=== PATIENT | male | born 1970 | race Caucasian/White ===

== ENCOUNTER 2022-01-11 09:58 | Emergency (ER) | payer BC ==
[~2022-01-11] VITALS: Ht 170.2 cm; Wt 84.4 kg
[2022-01-11 10:10] VITALS: BP_SYST 112
--- NOTE | 2022-01-11 10:10 | NUR ---
Patient triaged and placed in waiting room. VSS and patient appears in no acute distress at this time. Accompanied by , awaiting available bed, and MD notified of need for MSE.
--- NOTE | 2022-01-11 10:36 | NUR ---
Patient to ER bed 5 to gown for evaluation. Side rails up. Report given to BISHOP UPTON.
--- NOTE | 2022-01-11 11:14 | NUR ---
ER DR. STONE EXAMINING PT
[2022-01-11] MEDS ORDERED: LIDOCAINE PATCH 5% 1 EA TP ONE (11:15)
[2022-01-11] MEDS ORDERED: KETOROLAC TROMETHAMINE 30 MG VIAL IM ONE (11:15)
[2022-01-11] MEDS ORDERED: BACLOFEN 10 MG TABLET PO ONE (11:15)
[2022-01-11] MEDS ORDERED: predniSONE 20 MG TABLET PO ONE (11:15)
[2022-01-11] MEDS ORDERED: MORPHINE 4 MG INJ. 4 MG/ML VIAL IM ONE (12:30)
[2022-01-11] MEDS ORDERED: BACL20TA PO (13:13)
[2022-01-11] MEDS ORDERED: PRED20TA PO (13:13)
[2022-01-11] MEDS ORDERED: LIDOINT TD (13:13)
[2022-01-11] MEDS ORDERED: NAPR-688 PO (13:13)
[2022-01-11 13:15] VITALS: BP_SYST 136
--- NOTE | 2022-01-11 13:29 | NUR ---
DC INSTRUCTIONS GIVEN TO PT AND DISCUSSED. REVIEWED NEW RXS. QUESTIONS ANSWERED. VERB UNSTANDING. IMPROVEMENT IN PAIN. RESP EVEN AND UNLABORED. VSS. AMBULATORY WITH WALKER AND ACCOMPANIED BY
== END 2022-01-11 13:28 | disposition home or self-care (01) ==
LOC: SED 09:58
DX: S39.012A Strain of muscle, fascia and tendon of lower back, initial encounter (principal); M62.830 Muscle spasm of back; Z79.899 Other long term (current) drug therapy; Y04.0XXA Assault by unarmed brawl or fight, initial encounter; Y93.89 Activity, other specified; Y92.89 Other specified places as the place of occurrence of the external cause; Y99.8 Other external cause status
CPT/HCPCS: 99284; 96372; J7512; J1885; J2270